=== PATIENT | female | born 1990 | race Caucasian/White ===

== ENCOUNTER 2019-09-01 19:10 | Emergency (ER) | payer SELFPAY ==
[2019-09-01 19:19] VITALS: BP 95/57; PULSE 114; RESP 18; TEMP 37.6; O2SAT 98; BMI 23.1
--- NOTE | 2019-09-01 20:39 | ED_ITS ---
Entered by Belkis Stewart, acting as scribe for Bárbara Pickering MD Sep 01, 2019 19:10 HPI - Fever General: Chief Complaint: Fever Stated Complaint: fever Time Seen by Provider: 09/01/19 20:39 Source: patient and RN notes reviewed Mode of arrival: ambulatory Limitations: no limitations History of Present Illness: HPI Narrative: 29 yo female presents to ED with complaints of a high fever and sore throat that began today. The patient said she had a bad headache and body aches this morning. She said her thermometer measured 106.2. She has had Tylenol just prior to arrival. She has had sick contact. MD elicited complaint: fever and malaise Onset (ago): hour(s) (10 - began this morning) Measured temperature: 99.7 F Context: sick contacts and other(s) with similar symptoms Exacerbating factors: swallowing Relieving factors: acetaminophen Associated symptoms: Reports chills, headache(s) and sore throat; Deny abdominal pain, back/flank pain, chest pain, diarrhea, nausea or vomiting Treatments prior to arrival fever: acetaminophen Review of Systems Const: Reports: chills Eyes: Denies: change in vision ENMT: Denies: ear pain Card: Denies: chest pain, swelling of feet/ankles, shortness of breath on exertion or shortness of breath when lying down Resp: Denies: shortness of breath or productive cough GI: Denies: abdominal pain, nausea, vomiting, diarrhea or constipation : Denies: flank pain or difficulty urinating Musc: Denies: back pain Skin/Breast: Denies: rash Neuro: Reports: headache Psych: Denies: depression Endo: Denies: excessive thirst Derek/Lymph: Denies: easy bruising PFS ED PFSH: Social History Smoking and tobacco status: current every day smoker Physical Exam Const: COMMON NORMALS: no apparent distress, oriented x3 and alert GENERAL APPEARANCE: cooperative and well developed; not in distress and not diaphoretic ORIENTATION/CONSCIOUSNESS: Yes awake, Yes oriented to person, Yes oriented to place and Yes oriented to time HENMT: COMMON NORMALS: normocephalic, head/scalp atraumatic, external ears normal, external nose normal and moist oral mucous membranes HEAD & SCALP: normocephalic and atraumatic FACE & SINUS: normal facial exam; no facial tenderness NOSE: external nose normal EXTERNAL EAR: Yes external ears normal MOUTH: oral and palatal mucosa normal, lip normal and tongue normal TEETH & GINGIVA: no abnormal tooth and associated gingiva THROAT: uvula midline and posterior oropharynx abnormal erythema; posterior oropharynx not normal Eye: COMMON NORMALS: PERRL and EOMs intact bilaterally PUPIL: Yes PERRL Neck/C-Spine: COMMON NORMALS: full ROM, supple and no JVD GENERAL: Yes normal visual inspection and Yes trachea midline CERVICAL SPINE: No cervical spine tenderness Lymph: LYMPHATIC: no lymphadenopathy noted Chest: COMMONS NORMALS: inspection of chest normal Resp: COMMON NORMALS: normal respiratory effort, no use of accessory muscles and clear to auscultation bilaterally EFFORT & INSPECTION: Yes able to speak in complete sentences and Yes symmetric chest movement AUSCULTATION: clear to auscultation bilaterally Cardio: COMMON NORMALS: no JVD, regular rate, regular rhythm, no gallops, no murmurs and peripheral pulses 2+ throughout RATE: regular rate RHYTHM: regular rhythm PERIPHERAL PULSES: pulses 2+ throughout GI: COMMON NORMALS: normal to inspection, nondistended, normoactive bowel sounds, soft to palpation and non-tender PALPATION: Yes soft Back/Pelvis: COMMON NORMALS: thoracic and lumbar spine normal to inspection and thoraco-lumbar ROM normal Extremity: COMMON NORMALS: normal to inspection, full ROM and normal capillary refill Neuro: COMMON NORMALS: oriented x3, CN's II-XII intact bilaterally, moves all extremities, no focal motor deficits and no sensory deficits noted SENSORIUM/ORIENTATION: Yes alert, Yes oriented to person, Yes oriented to place and Yes oriented to time Psych: COMMON NORMALS: mental status grossly normal, thought process normal, cooperative, affect normal, speech normal and activity/motor behavior normal SPEECH: Yes normal speech THOUGHT PROCESS: normal thought process Skin: COMMON NORMALS: no rashes or lesions noted and skin turgor normal GENERAL SKIN EXAM: no rashes or lesions noted and turgor normal Course ED course: Patient took tylenol before coming in and her temp is 99.7 here. 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 Flu and strep were both neg for her here - discussed symptomatic treatment and will keep her off work for infection control purposes until Thursday. Vital Signs: Vital signs: Vital Signs Temperature 98.4 F 09/01/19 20:47 Pulse Rate 100 09/01/19 21:23 Respiratory Rate 16 09/01/19 21:23 Blood Pressure 90/59 09/01/19 21:23 Pulse Oximetry 97 09/01/19 21:23 MDM - Fever Lab Data: Labs: Lab Results 09/01/19 09/01/19 Range/Units 20:51 20:51 Influenza Type A A g Negative (Negative) POC Influenza B Ag Negative (Negative) Group A Strep Rapi d Negative (Negative) Discharge Plan Discharge Patient Disposition: Home, Self-Care Clinical Impression: Viral infection Condition: Stable Prescriptions: No Action No Known Home Medications RF: 0 Discharge Orders: Discharge Order (Routine); Ordered 09/01/19 Ordered By: Bárbara Pickering Referrals: Jared Calvin MD [Primary Care Provider] - Patient Instructions: Viral Syndrome (ED) Activity Restrictions/Additional Instructions: Use ibuprofen and acetaminophen for fever or pain. Rest and drink plenty of fluids. No work until fever free for 24 hours. Stand Alone Forms: Work/School Release Coding Level of Care Code ED Manager Engagement for Chg Fwd Exam Problem Focused The documentation recorded by the Terry mcclure Valerie R, accurately reflects the service I personally performed and the decisions made by Raheel cornelius Kathryn L, MD Sep 01, 2019 19:10
--- NOTE | 2019-09-01 20:44 | PC.NURSE ---
Patient states she woke up today with a fever and a sore throat. Patient states she used a forehead temperature scanner at home and it read 106.2. 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
[2019-09-01 20:47] VITALS: BP 104/55; PULSE 93; RESP 16; TEMP 36.9; O2SAT 97
[2019-09-01 21:19] LABS: Rapid Strep A Test Negative (Negative)
[2019-09-01 21:23] VITALS: BP 90/59; PULSE 100; RESP 16; O2SAT 97
[2019-09-01 21:33] LABS: Influenza A by IFA Negative (Negative)
[2019-09-01 21:34] LABS: Influenza B by IFA Negative (Negative)
[2019-09-01 22:01] VITALS: BP 98/65; PULSE 88; RESP 14; O2SAT 97
== END 2019-09-01 22:04 | disposition home or self-care (01) ==
PROVIDERS: Nurse Practitioner Family; Emergency Provider Emergency Medicine; Family Provider Family Medicine; PCP Family Medicine
DX: B34.9 Viral infection, unspecified (principal); F17.200 Nicotine dependence, unspecified, uncomplicated
CPT/HCPCS: 87081; 87804; 87880; 99282

== ENCOUNTER → 2019-12-16 11:15 | Outpatient (BNVA) | payer OTHER, SELFPAY | PROVIDERS: Family Provider Family Medicine; PCP Family Medicine; Visit Provider Nurse Practitioner Family | DX: Z20.828 Contact with and (suspected) exposure to other viral communicable diseases (principal); J40 Bronchitis, not specified as acute or chronic | CPT/HCPCS: 87635 ==

== ENCOUNTER 2020-02-05 00:01 | Emergency (ER) | payer SELFPAY ==
--- NOTE | 2020-02-05 00:06 | ECG_ITS ---
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 Measurements Intervals [place] Rate: 71 P: 54 FL: 135 QRS: 88 QRSD: 96 T: 44 QT: 396 QTc: 431 Interpretive Statements SINUS RHYTHM INCOMPLETE RIGHT BUNDLE BRANCH BLOCK [90+ ms QRS DURATION, TERMINAL R IN V1/V2, 40+ ms S IN I/aVL/V4/V5/V6] Compared to ECG 02/13/2019 18:48:51 Sinus arrhythmia no longer present Electronically Signed On 02-05-2020 22:03:13 CDT by Marcelo Glynn M.D. [id number]
[2020-02-05 01:03] VITALS: BP 121/78; PULSE 92; RESP 17; TEMP 36.6; O2SAT 97; BMI 23.8
--- NOTE | 2020-02-05 01:24 | W.ED.DIZZY ---
HPI - Dizziness General: Chief Complaint: Dizziness Stated Complaint: dizzy; syncope this morning Time Seen by Provider: 02/05/20 01:19 Source: patient Mode of arrival: ambulatory Limitations: no limitations History of Present Illness: HPI Narrative: Patient comes in with a 1-1/2 2 weeks episodes of feeling lightheaded and dizzy. Patient appears well. Patient reports last week she had her. And since then she has had some increasing dizzy spells. Patient also reports some nausea. Patient appears in no pain. Patient denies any fever. MD elicited complaint: dizziness Review of Systems General: Reports: 10 or more systems reviewed and unremarkable except in HPI and below Neuro: Reports: dizziness PFS ED PFSH: Social History (Updated 12/16/19 @ 11:19 by Ira Marie LPN) Smoking and tobacco status: current every day smoker Alcohol intake: never History of recent travel: No Female Reproductive History: Date of last menstrual period: 01/31/20 Physical Exam Const: COMMON NORMALS: no acute distress and patient oriented x3 GENERAL APPEARANCE: cooperative HENMT: COMMON NORMALS: normocephalic, TM's normal bilaterally and Normal external nose present HEAD & SCALP: normal to inspection and normocephalic NOSE: Normal external nose present TYMPANIC MEMBRANE: TM's normal bilaterally MOUTH: Normal oral and palatal mucosa present THROAT: posterior oropharynx normal Eye: GENERAL EYE: appearance normal, both eyes and all related structures Neck/C-Spine: COMMON NORMALS: full ROM Lymph: LYMPHATIC: no lymphadenopathy noted Chest: COMMONS NORMALS: normal inspection of the chest Resp: COMMON NORMALS: normal respiratory effort EFFORT & INSPECTION: Yes able to speak in complete sentences Cardio: COMMON NORMALS: regular rate and regular rhythm RATE: regular rate RHYTHM: regular rhythm GI: COMMON NORMALS: non-tender : COMMON NORMALS: Yes no CVA tenderness BLADDER/KIDNEY EXAM: Yes no CVA tenderness Back/Pelvis: COMMON NORMALS: no CVA tenderness and thoracic and lumbar spine normal to inspection Extremity: COMMON NORMALS: normal to inspection Neuro: COMMON NORMALS: patient oriented x3 and moves all extremities Psych: COMMON NORMALS: mental status grossly normal and cooperative Skin: COMMON NORMALS: no rashes or lesions noted GENERAL SKIN EXAM: no rashes or lesions noted Course Vital Signs: Vital signs: Vital Signs Temperature 98 F 02/05/20 01:03 Pulse Rate 67 02/05/20 02:37 Respiratory Rate 17 02/05/20 02:37 Blood Pressure 107/66 02/05/20 02:37 Pulse Oximetry 100 02/05/20 02:37 MDM - Dizziness MDM Narrative: Medical decision making narrative: Patient comes in with episodes of dizziness for the last 1 to 2 weeks. Patient had recently finished her. And was concerned because of some spotting that she had after completing her period. Patient appears well. Blood pressure and vital signs are normal. Abdomen soft nontender. Respirations are even lungs are clear to auscultation. Differential diagnosis includes but not limited to ectopic , anemia, urinary tract infection, electrolyte disturbance, dehydration, benign positional vertigo. Laboratory values were normal. Orthostatic blood pressures were good. Believe patient probably does have some benign positional vertigo. Patient does report that she does do this often and it sounds to be common for her. Recommended trial of aeeq-aww-qzxydqk nausea medication such as Dramamine. Patient reports understanding agreed to plan. Lab Data: Labs: Lab Results 02/05/20 02/05/20 02/05/20 Range/Units 01:44 01:57 01:57 WBC 7.0 (4.0-10.0) 10^3/ uL RBC 4.82 (4.1-5.3) 10^6/u L Hgb 13.2 (11.5-15.3) g/dL Hct 41.8 (37.0-47.0) % MCV 86.7 (81-99) fL MCH 27.4 L (28.0-34.0) pg MCHC 31.6 (30.0-36.0) g/dL RDW 12.8 (12.1-15.1) % Plt Count 176 (130-400) 10^3/c mm MPV 12.1 H (7.4-10.4) fL Neut % (Auto) 49.9 % Lymph % (Auto) 42.0 % [place] % (Auto) 5.7 % Eos % (Auto) 1.7 % Baso % (Auto) 0.6 % Neut # (Auto) 3.48 (1.8-7.7) 10^3/u L Lymph # (Auto) 2.9 (0.8-4.8) 10^3/u L [place] # (Auto) 0.4 (0.2-0.9) 10^3/u L Eos # (Auto) 0.1 (0.0-0.8) 10^3/u L Baso # (Auto) 0.0 (0.0-0.1) 10^3/u L Nucleated RBC % (a uto) 0 % Nucleated RBCs # 0.0 /100WBC Sodium 142 (136-145) mmol/L Potassium 3.8 (3.5-5.1) mmol/L Chloride 104 (98-107) mmol/L Carbon Dioxide 28 (22-29) mmol/L Anion Gap 13.8 (5-19) BUN 10 (6-20) mg/dL Creatinine 0.8 (0.5-0.9) mg/dL GFR Calculation 84.8 L (90-130) mL/min Glucose 91 (65-115) mg/dL Calculated Osmolal ity 290 (285-295) mOsm/k g Calcium 8.9 (8.5-10.5) mg/dL HCG, Qual Negative (Negative) EKG Data^: EKG 1: Attestation: I personally reviewed and interpreted this EKG as follows: (0123, sinus rhythm regular rate 71 bpm, no ectopy, no ST elevation. Incomplete right bundle branch block. No change from 02/13/2019.) Discharge Plan Discharge Patient Disposition: Home, Self-Care Clinical Impression: Benign paroxysmal positional vertigo Qualifiers: Laterality: unspecified laterality Qualified Code(s): H81.10 - Benign paroxysmal vertigo, unspecified ear Condition: Stable Prescriptions: No Action azithromycin 250 mg tablet See Rx Instructions PO .COMPLEX Qty: 6 RF: 0 Discharge Orders: Discharge Order (Routine); Ordered 02/05/20 Ordered By: Rob Kumar Referrals: Jared Calvin MD [Primary Care Provider] - Patient Instructions: Benign Paroxysmal Positional Vertigo (ED) Activity Restrictions/Additional Instructions: Drink plenty of fluids. Healthy diet and exercise. Use dvoo-fwk-[id number] motion sickness medicine such as Dramamine as needed for nausea and dizziness. Change positions slowly. Follow-up with primary care for further treatment. Return to the ER for new concerns. Stand Alone Forms: Work/School Release Coding Level of Care Code ED Correction Warden for Chg Fwd Exam Comprehensive
[2020-02-05 02:03] VITALS: BP 108/66; BP 117/73; BP 97/60; PULSE 70; PULSE 74
[2020-02-05] MEDS: sodium chloride 0.9% 1,000 ML 999 ML IV (02:07)
[2020-02-05 02:31] LABS: HCG Qualitative Urine. Negative (Negative)
[2020-02-05 02:31] LABS: Basophils % 0.6 %; Eosinophils # 0.1 10^3/uL (0.0-0.8); Eosinophils % 1.7 %; Hematocrit 41.8 % (37.0-47.0); Hemoglobin 13.2 g/dL (11.5-15.3); Lymphocytes # 2.9 10^3/uL (0.8-4.8); Mean Corpuscular HGB Conc 31.6 g/dL (30.0-36.0); Mean Corpuscular Hemoglobin 27.4 pg (28.0-34.0); Mean Corpuscular Volume 86.7 fL (81-99); Mean Platelet Volume 12.1 fL (7.4-10.4); Monocytes # 0.4 10^3/uL (0.2-0.9); Monocytes % 5.7 %; Neutrophils # 3.48 10^3/uL (1.8-7.7); Neutrophils % 49.9 %; Nucleated Red Blood Cells % 0 %; Platelet Count 176 10^3/cmm (130-400); Red Blood Count 4.82 10^6/uL (4.1-5.3); Red Cell Distribution Width 12.8 % (12.1-15.1)
[2020-02-05 02:37] VITALS: BP 107/66; PULSE 67; RESP 17; O2SAT 100
[2020-02-05 02:38] LABS: Anion Gap 13.8 (5-19); Blood Urea Nitrogen 10 mg/dL (6-20); Calcium 8.9 mg/dL (8.5-10.5); Carbon Dioxide 28 mmol/L (22-29); Chloride 104 mmol/L (98-107); Glomerular Filtration Rate 84.8 mL/min (90-130); Glucose 91 mg/dL (65-115); Osmolality Calculated 290 mOsm/kg (285-295); Potassium 3.8 mmol/L (3.5-5.1); Sodium 142 mmol/L (136-145)
[2020-02-05 02:54] LABS: Urine Appearance SL Hazy (CLEAR); Urine Color Yellow (Yellow)
[2020-02-05 02:55] LABS: Add Urine Microscopic? YES; Bilirubin Urine Neg (NEGATIVE); Blood Urine Neg (Negative); Glucose Urine UA Norm (Normal); Ketones Urine Negative (Negative); Leukocyte Esterase Urine Negative (Negative); Nitrate Urine Negative (Negative); Protein Urine 1+ (Negative); Urobilinogen Urine Norm (Negative); pH Urine 7 (5-7)
[2020-02-05 03:01] VITALS: BP 92/52; PULSE 66; RESP 14; O2SAT 100
[2020-02-05 03:04] LABS: RBC Urine 0-4 /hpf (0-2)
[2020-02-05 03:05] LABS: Add Urine Culture? No; Bacteria Urine 1+; Mucus Urine 1+; Squamous Epithelial Cell Urine 15-25 (0-5)
== END 2020-02-05 03:07 | disposition home or self-care (01) ==
PROVIDERS: Emergency Medicine; Emergency Provider Nurse Practitioner Family; PCP Family Medicine
DX: H81.10 Benign paroxysmal vertigo, unspecified ear (principal); F17.210 Nicotine dependence, cigarettes, uncomplicated
CPT/HCPCS: 12345; 80048; 81001; 81003; 81025; 85025; 93005; 96360; 99283; J7030

== ENCOUNTER → 2020-05-09 13:18 | Outpatient (BNVA) | payer OTHER, SELFPAY | PROVIDERS: PCP Family Medicine; Visit Provider Nurse Practitioner Family | DX: Z20.828 Contact with and (suspected) exposure to other viral communicable diseases (principal) | CPT/HCPCS: 87635 ==

== ENCOUNTER → 2020-10-22 11:57 | Outpatient (BNVA) | payer SELFPAY | PROVIDERS: PCP Family Medicine; Visit Provider Nurse Practitioner | DX: N39.0 Urinary tract infection, site not specified (principal); A49.9 Bacterial infection, unspecified | CPT/HCPCS: 81000; 87086 ==

== ENCOUNTER → 2021-02-08 13:51 | Outpatient (BNVA) | payer OTHER, SELFPAY | PROVIDERS: PCP Family Medicine; Visit Provider Nurse Practitioner Family | DX: Z20.822 Contact with and (suspected) exposure to COVID-19 (principal); J06.9 Acute upper respiratory infection, unspecified | CPT/HCPCS: 87635 ==

== ENCOUNTER → 2021-06-12 18:02 | Outpatient (BNVA) | payer OTHER, SELFPAY | PROVIDERS: PCP Family Medicine; Visit Provider Nurse Practitioner Family | DX: Z20.822 Contact with and (suspected) exposure to COVID-19 (principal); R68.89 Other general symptoms and signs | CPT/HCPCS: 87400; 87635 ==

== ENCOUNTER → 2021-06-17 09:58 | Outpatient (BNVA) | payer OTHER, SELFPAY | PROVIDERS: PCP Family Medicine; Visit Provider Nurse Practitioner Family | DX: Z20.822 Contact with and (suspected) exposure to COVID-19 (principal) | CPT/HCPCS: 87635 ==

== ENCOUNTER → 2021-06-24 16:31 | Outpatient (BNVA) | payer SELFPAY | PROVIDERS: PCP Family Medicine; Visit Provider Nurse Practitioner | DX: J02.9 Acute pharyngitis, unspecified (principal) | CPT/HCPCS: 87071; 87880 ==

== ENCOUNTER 2021-07-27 20:41 | Emergency (ER) | payer SELFPAY ==
[2021-07-27 20:45] VITALS: BP 121/65; PULSE 100; RESP 16; TEMP 37.1; O2SAT 97; BMI 23.2
[2021-07-27 21:23] VITALS: O2SAT 98
--- NOTE | 2021-07-27 21:23 | ED_ITS ---
HPI - URI/Sore Throat General: Chief Complaint: COVID symptoms Stated Complaint: body aches,fever, headache Time Seen by Provider: 07/27/21 21:10 Source: patient Mode of arrival: ambulatory Limitations: no limitations History of Present Illness: HPI Narrative: Patient is a 30-year-old female presents to ED today for complaint of fevers of up to 102, body aches, chills, scratchy throat, productive cough, and a headache. Symptoms of been present since yesterday. Patient states her son is sick with identical symptoms. Patient states herself and her son both tested positive for COVID last month. She is not having any abdominal pain, vomiting, diarrhea. No rash. No neck pain/stiffness. Onset (ago): day(s) Description of mucous: clear Able to tolerate fluids by mouth: Yes Context: sick contacts (son) Associated symptoms: Reports chills, fever(s) and headache(s); Deny abdominal pain, chest pain, diarrhea, ear or mastoid pain, nasal congestion, nausea or vomiting Treatments prior to arrival: none Review of Systems Const: Reports: fever(s), chills and body aches Eyes: Denies: change in vision, blurry vision, eye discomfort or eye discharge ENMT: Denies: throat pain, odynophagia, ear or mastoid pain, nasal discharge or nasal congestion Card: Denies: chest pain Resp: Reports: productive cough and chest congestion; Denies: dyspnea, wheezing or hemoptysis GI: Denies: abdominal pain, nausea, vomiting or diarrhea Musc: Denies: neck pain, back pain, extremity pain or joint pain Skin/Breast: Denies: rash Neuro: Reports: headache(s); Denies: numbness in extremities, weakness in extremities or sensory changes PFS ED PFSH: Social History Alcohol intake: never History of recent travel: No Female Reproductive History: Date of last menstrual period: 01/31/20 Physical Exam Const: COMMON NORMALS: no acute distress, average body habitus, patient oriented x3, no limitations, healthy appearing, alert and well nourished GENERAL APPEARANCE: cooperative HENMT: COMMON NORMALS: normocephalic and atraumatic HEAD & SCALP: normal to inspection, normocephalic and atraumatic FACE & SINUS: normal facial exam THROAT: posterior oropharynx normal, tonsils normal and uvula midline Neck/C-Spine: COMMON NORMALS: full ROM, no lymphadenopathy, supple and no meningeal signs Chest: COMMONS NORMALS: normal inspection of the chest Resp: COMMON NORMALS: normal respiratory effort and clear to auscultation bilaterally AUSCULTATION: clear to auscultation bilaterally Cardio: COMMON NORMALS: regular rate and regular rhythm RATE: regular rate RHYTHM: regular rhythm GI: COMMON NORMALS: Normal to inspection, nondistended, normoactive bowel sounds present, Soft to palpation, non-tender, No hepatosplenomegaly present and no masses PALPATION: Yes Soft to palpation and Yes No hepatosplenomegaly present : COMMON NORMALS: Yes no CVA tenderness BLADDER/KIDNEY EXAM: Yes no CVA t enderness Back/Pelvis: COMMON NORMALS: no CVA tenderness and thoracic and lumbar spine normal to inspection Extremity: COMMON NORMALS: normal to inspection Neuro: COMMON NORMALS: patient oriented x3 SENSORIUM/ORIENTATION: Yes alert MENINGEAL SIGNS: Yes no meningeal signs Skin: COMMON NORMALS: no rashes or lesions noted GENERAL SKIN EXAM: no rashes or lesions noted Course Vital Signs: Vital signs: Vital Signs Temperature 98.6 F 07/27/21 22:47 Pulse Rate 90 07/27/21 22:47 Respiratory Rate 16 07/27/21 22:47 Blood Pressure 121/65 07/27/21 20:45 Pulse Oximetry 97 07/27/21 22:47 MDM - URI/Sore Throat MDM Narrative: Medical decision making narrative: Patient clinically appears well. Her vital signs are normal. Influenza is negative. I would have a low suspicion for COVID reinfection as she had a positive test 1 month ago. Recommend conservative treatment at home. Return to ED precautions given. I did order Coronavirus PCR on her son which we should have results of that shortl y. They present with almost identical symptoms. Explained to mother that if he tests positive for something then most likely she has the same thing. Lab Data: Attestation: I reviewed the patient's lab results. Labs: Lab Results 07/27/21 21:30 Influenza Type A A g Negative (Negative) Influenza Type B A g Negative (Negative) Discharge Plan Discharge Patient Disposition: Home Clinical Impression: Viral upper respiratory illness Condition: Stable Prescriptions: No Action amoxicillin-pot clavulanate [Augmentin] 875-125 mg tablet 1 tab PO Q12H 7 Days Qty: 14 RF: 0 Discharge Orders: Discharge ED (Routine); Ordered 07/27/21 Ordered By: Sylvia Funez Referrals: Jared Calvin MD [Primary Care Provider] - Patient Instructions: Upper Respiratory Infection (ED) Stand Alone Forms: Work/School Release Coding Level of Care Code ED Press Writer for [facility] Fwd Exam Comprehensive
[2021-07-27 22:22] LABS: Influenza A by IFA Negative (Negative); Influenza B by IFA Negative (Negative)
[2021-07-27 22:47] VITALS: PULSE 90; RESP 16; TEMP 37; O2SAT 97
== END 2021-07-27 22:48 | disposition home or self-care (01) ==
PROVIDERS: Emergency Provider Physician Assistant; PCP Family Medicine
DX: J06.9 Acute upper respiratory infection, unspecified (principal); Z86.16 Personal history of COVID-19; Z20.822 Contact with and (suspected) exposure to COVID-19
CPT/HCPCS: 87804; 99282

== ENCOUNTER → 2021-07-29 13:27 | Outpatient (BNVA) | payer SELFPAY | PROVIDERS: PCP Family Medicine; Visit Provider Nurse Practitioner Family | DX: Z20.822 Contact with and (suspected) exposure to COVID-19 (principal) | CPT/HCPCS: 87635 ==

== ENCOUNTER → 2021-11-08 13:37 | Outpatient (BNVA) | payer SELFPAY | PROVIDERS: PCP Family Medicine; Visit Provider Family Medicine Adult Medicine | DX: R11.2 Nausea with vomiting, unspecified (principal) | CPT/HCPCS: 87400 ==

== ENCOUNTER 2022-01-25 08:31 | Emergency (ER) | payer MEDICAID, SELFPAY ==
--- NOTE | 2022-01-25 08:35 | XRR_ITS ---
PROCEDURE INFORMATION: Exam: XR Left Hand Exam date and time: 01/25/2022 8:57 AM Age: 31 years old Clinical indication: Injury or trauma; Other: Object fell on hand/wrist; Crushing; Hand and wrist; Left; Additional info: Hand injury TECHNIQUE: Imaging protocol: Radiologic exam of the Left hand. Views: 3 or more views. COMPARISON: No relevant prior studies available. FINDINGS: Bones/joints: Negative for acute bony abnormality Soft tissues: Normal. XR/XR hand LT min 3V* [id number] IMPRESSION: No acute findings.
[2022-01-25 08:48] VITALS: BP 112/74; PULSE 64; RESP 14; TEMP 36.6; O2SAT 99; BMI 23.3
--- NOTE | 2022-01-25 09:11 | W.ED.EXTPRO ---
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 She was helping load a toolbox into the vehicle the other end was dropped unexpectedly and it strained her wrist. She is not previously had injury to that wrist or thumb. There is no laceration no bruising she is tender to touch and with motion. MD Complaint: extremity pain and joint pain Onset (ago): minute(s) Pain Consistency: constant Location: left and upper extremity Quality: aching Radiation: none Relieving factors: nothing Exacerbating factors: palpation Associated symptoms: Deny fever(s) Review of Systems Const: Denies: fever(s) or chills Musc: Reports: extremity pain and joint pain; Denies: extremity swelling or joint swelling PFS ED PFSH: Social History (Updated 07/29/21 @ 10:32 by Alona Juan NP) Smoking and tobacco status: current every day smoker cigarettes Alcohol intake: never History of recent travel: No Female Reproductive History: Date of last menstrual period: 01/31/20 Physical Exam Const: COMMON NORMALS: no acute distress GENERAL APPEARANCE: cooperative and comfortable ORIENTATION/CONSCIOUSNESS: Yes awake, Yes oriented to person, Yes oriented to place and Yes oriented to time HENMT: COMMON NORMALS: normocephalic, atraumatic and hearing grossly normal bilaterally HEAD & SCALP: normocephalic and atraumatic Extremity: COMMON NORMALS: normal to inspection, capillary refill normal, no clubbing, cyanosis or edema, no calf tenderness and no pedal edema OTHER: No ligamentous instability or laxity no swelling no erythema no ecchymosis no lacerations no laxity no ulnar collateral ligament. No pain at the anatomical snuffbox Neuro: SENSORIUM/ORIENTATION: Yes oriented to person, Yes oriented to place and Yes oriented to time Skin: COMMON NORMALS: no rashes or lesions noted GENERAL SKIN EXAM: no rashes or lesions noted Course Vital Signs: Vital signs: Vital Signs Temperature 98 F 01/25/22 08:48 Pulse Rate 64 01/25/22 08:48 Respiratory Rate 14 01/25/22 08:48 Blood Pressure 112/74 01/25/22 08:48 Pulse Oximetry 99 01/25/22 08:48 MDM - Extremity (Nontraumatic) Medical Decision Making Ice ibuprofen as needed May return to use as comfortable Medical Records I reviewed the patient's medical records. Lab Data I reviewed the patient's lab results. Discharge Plan Discharge Patient Disposition: Home Clinical Impression: Sprain of left wrist Condition: Stable Prescriptions: New diclofenac sodium 75 mg tablet,delayed release (DR/EC) 75 mg PO Q12H PRN (Reason: pain) Qty: 20 0RF No Action melatonin 5 mg capsule 10 mg PO ONCE PRN0RF sertraline [Zoloft] 100 mg tablet 100 mg PO DAILY 0RF Discharge Orders: Discharge ED (Routine); Ordered 01/25/22 Ordered By: Francisco Arreguin Referrals: Jared Calvin MD [Primary Care Provider] - Discharge Diet: Usual diet Discharge Activity: Increase activity as tolerated Patient Instructions: Opioid Safety Activity Restrictions/Additional Instructions: Ice for wrist as needed. Use diclofenac as needed as well. Do not take ibuprofen or Aleve when taking diclofenac. Coding Level of Care Code ED Compliance Specialist for [employer] Fwd Exam Expanded Problem Focused
--- NOTE | 2022-01-25 09:14 | XRR_ITS ---
PROCEDURE INFORMATION: Exam: XR Left Wrist Exam date and time: 01/25/2022 9:16 AM Age: 31 years old Clinical indication: Injury or trauma; Other: Object fell on wrist/hand; Crushing; Hand and wrist; Left; Additional info: Pain TECHNIQUE: Imaging protocol: Radiologic exam of the Left wrist. Views: 3 or more views. COMPARISON: CR (UP EXM, ) 01/25/2022 8:57 AM FINDINGS: Bones/joints: Negative for acute fracture or focal bony abnormality. Soft tissues: Normal. XR/XR wrist LT min 3V* [id number] IMPRESSION: No acute findings.
== END 2022-01-25 09:27 | disposition home or self-care (01) ==
PROVIDERS: Emergency Provider Family Medicine; PCP Family Medicine
DX: S63.502A Unspecified sprain of left wrist, initial encounter (principal); F17.210 Nicotine dependence, cigarettes, uncomplicated; X50.0XXA Overexertion from strenuous movement or load, initial encounter
CPT/HCPCS: 73110; 73130; 99283

== ENCOUNTER → 2022-03-05 12:31 | Outpatient (BNVA) | payer MEDICAID, SELFPAY | PROVIDERS: PCP Family Medicine; Visit Provider Emergency Medicine | DX: R39.9 Unspecified symptoms and signs involving the genitourinary system (principal); K57.92 Diverticulitis of intestine, part unspecified, without perforation or abscess without bleeding | CPT/HCPCS: 81000 ==

== ENCOUNTER → 2022-06-03 11:27 | Outpatient (BNVA) | payer MEDICAID, SELFPAY | PROVIDERS: PCP Family Medicine; Visit Provider Nurse Practitioner Family | DX: R11.2 Nausea with vomiting, unspecified (principal) | CPT/HCPCS: 87400 ==

== ENCOUNTER 2022-07-01 13:31 | Emergency (ER) | payer MEDICAID, SELFPAY ==
[2022-07-01 13:38] VITALS: BP 124/84; PULSE 98; RESP 16; TEMP 36.8; O2SAT 100; BMI 23.3
[2022-07-01 14:03] LABS: Add Urine Microscopic? NO; Charge for UA Resulting for Rev
[2022-07-01 14:13] LABS: HCG Qualitative Urine. Negative (Negative)
[2022-07-01 14:13] LABS: Bilirubin Urine Neg (Negative); Blood Urine Neg (Negative); Glucose Urine UA Norm (Normal); Ketones Urine Negative (Negative); Leukocyte Esterase Urine Negative (Negative); Nitrate Urine Negative (Negative); Protein Urine Neg (Negative); Specific Gravity, Urine 1.015 (1.005-1.030); Urine Appearance Clear (CLEAR); Urine Color Yellow (Yellow); Urobilinogen Urine Norm (Negative); pH Urine 5 (5-7)
--- NOTE | 2022-07-01 14:31 | US_ITS ---
WS: [id number] ULTRASOUND PELVIS TECHNIQUE: Transabdominal and transvaginal. ULTRASOUND PELVIS TECHNIQUE: Transabdominal and transvaginal. CLINICAL INFORMATION: pelvic pain LMP: : No. COMPARISON: None. FINDINGS: Uterus Orientation: Anteverted. Size: 8.5 cm x 5.6 cm x 5.0 cm. Masses: None. Cervix: Incidental nabothian cysts in cervix. Endometrium: Normal. Endometrium thickness: 6 mm Adnexa: RIGHT ovarian hemorrhagic cyst measuring 2.6 x 2.4 x 2.1 cm with internal septations and debr is. Multifollicular LEFT ovary. Possible corpus luteum cyst LEFT ovary. Right ovary size: 3.8 cm x 4.2 cm x 3.5 cm. Right ovary volume: 29.8 ccm3. Left ovary size: 4.4 cm x 2.2 cm x 4.1 cm. Left ovary volume: 20.8 ccm3 Free fluid: Present Other findings: None. US/US pelvic with transvaginal IMPRESSION: 1. RIGHT ovarian hemorrhagic cyst measuring 2.6 x 2.4 x 2.1 cm with internal s eptations and debris. 2. Small amount of free fluid in the cul-de-sac. 3. Endometrium measures 6.4 mm. 4. Multifollicular LEFT ovary.
--- NOTE | 2022-07-01 14:48 | W.ED.FEMALGU ---
Documented by User: DEMETRIO Kraft 07/01/22 18:31 HPI - Female Genitourinary General: Chief complaint: Urogenital-Female Stated complaint: abd/urinary pain Time Seen by Provider: 07/01/22 13:49 History of Present Illness: Patient is in today for pelvic pain. She reports that approximately mid April she peed something rubbery out. She is concerned because she has had a tubal ligation back before they burnt or clipped the tubes. She reports that shortly after her pain the rubber material out she had a period that lasted approximately a month. She reports that approximately a week ago she had a period for 1 day which is very atypical for her. She reports that since Thursday she has had pelvic pain, nausea, breast tenderness, fever. She is very concerned that she is . She does report clear whitish vaginal discharge. She denies any new sexual partners. Associated symptoms: Reports abdominal pain, nausea and vaginal discharge Review of Systems Const: Reports: fever(s), chills and body aches Card: Denies: chest pain or palpitations Resp: Denies: dyspnea, productive cough or non-productive cough GI: Reports: abdominal pain and nausea; Denies: vomiting : Reports: vaginal discharge, change in menstrual flow and pelvic pain; Denies: difficulty voiding, dysuria or urinary frequency PFSH ED PFSH: Social History Smoking and tobacco status: current every day smoker cigarettes Alcohol intake: never History of recent travel: No Physical Exam Const: COMMON NORMALS: patient oriented x3 and alert OTHER: Patient is sitting in the chair holding her abdomen. Neck/C-Spine: COMMON NORMALS: no JVD Resp: COMMON NORMALS: normal respiratory effort, No use of accessory muscles and clear to auscultation bilaterally AUSCULTATION: clear to auscultation bilaterally Cardio: COMMON NORMALS: no JVD, regular rate, regular rhythm, S1 normal heart sound present, S2 normal heart sound present and No murmurs present (Cardio) RATE: regular rate RHYTHM: regular rhythm HEART SOUNDS: S1 normal heart sound present and S2 normal heart sound present GI: COMMON NORMALS: Normal to inspection, nondistended, normoactive bowel sounds present and Soft to palpation PALPATION: Yes Soft to palpation and Yes Tenderness to palpation present (GI) Details: LLQ and RLQ Neuro: COMMON NORMALS: patient oriented x3 SENSORIUM/ORIENTATION: Yes alert Course Vital Signs: Vital signs: Vital Signs Temperature 98.2 F 07/01/22 13:38 Pulse Rate 81 07/01/22 16:43 Respiratory Rate 14 07/01/22 16:43 Blood Pressure 99/61 07/01/22 16:43 Pulse Oximetry 97 07/01/22 16:43 Oxygen Delivery Me thod 07/01/22 16:43 MDM - Female Medical Decision Making Consider pelvic pain, ovarian cyst, ovarian torsion, PID. hCG is negative. Patient was concerned about ectopic despite a previous tubal ligation. Ultrasound shows right side ovarian hemorrhagic cyst small amount of free fluid in the cul-de-sac. Will treat patient with NSAIDs. Discharge her home to follow-up with [facility] for management of ovarian cyst. Return to the ER as needed for new or worsening symptoms. Lab Data 07/01/22 15:52 07/01/22 15:52 Radiology Impressions Pelvic/Transvag US 07/01/22 14:31 IMPRESSION: 1. RIGHT ovarian hemorrhagic cyst measuring 2.6 x 2.4 x 2.1 cm with internal septations and debris. 2. Small amount of free fluid in the cul-de-sac. 3. Endometrium measures 6.4 mm. 4. Multifollicular LEFT ovary. Laboratory Results WBC 5.3 10^3/uL (4.0-10.0) 07/01/22 15:52 RBC 4.72 10^6/uL (4.1-5.3) 07/01/22 15:52 Hgb 13.3 g/dL (11.5-15.3) 07/01/22 15:52 Hct 40.8 % (37.0-47.0) 07/01/22 15:52 MCV 86.4 fl (81-99) 07/01/22 15:52 MCH 28.2 pg (28.0-34.0) 07/01/22 15:52 MCHC 32.6 g/dL (30.0-36.0) 07/01/22 15:52 RDW 12.7 % (12.1-15.1) 07/01/22 15:52 Plt Count 177 10^3/cmm (130-400) 07/01/22 15:52 MPV 12.0 fL (7.4-10.4) H 07/01/22 15:52 Neut % (Auto) 58.7 % 07/01/22 15:52 Lymph % (Auto) 31.1 % 07/01/22 15:52 [place] % (Auto) 8.1 % 07/01/22 15:52 Eos % (Auto) 1.5 % 07/01/22 15:52 Baso % (Auto) 0.4 % 07/01/22 15:52 Neut # (Auto) 3.13 10^3/uL (1.8-7.7) 07/01/22 15:52 Lymph # (Auto) 1.7 10^3/uL (0.8-4.8) 07/01/22 15:52 [place] # (Auto) 0.4 10^3/uL (0.2-0.9) 07/01/22 15:52 Eos # (Auto) 0.1 10^3/uL (0.0-0.8) 07/01/22 15:52 Baso # (Auto) 0.0 10^3/uL (0.0-0.1) 07/01/22 15:52 Nucleated RBC % (auto) 0 % 07/01/22 15:52 Nucleated RBCs # 0.0 /100WBC 07/01/22 15:52 Sodium 141 mmol/L (136-145) 07/01/22 15:52 Potassium 4.1 mmol/L (3.5-5.1) 07/01/22 15:52 Chloride 105 mmol/L (98-107) 07/01/22 15:52 Carbon Dioxide 24 mmol/L (22-29) 07/01/22 15:52 Anion Gap 16.1 (5-19) 07/01/22 15:52 BUN 11 mg/dL (6-20) 07/01/22 15:52 Creatinine 0.8 mg/dL (0.5-0.9) 07/01/22 15:52 GFR Calculation 83.7 mL/min (90-130) L 07/01/22 15:52 Glucose 76 mg/dL (65-115) 07/01/22 15:52 Calculated Osmolality 290 mOsm/kg (285-295) 07/01/22 15:52 Calcium 9.3 mg/dL (8.5-10.5) 07/01/22 15:52 Total Bilirubin 0.2 mg/dL (0.15-1.2) 07/01/22 15:52 AST 17 U/L (0-32) 07/01/22 15:52 ALT 16 U/L (0-33) 07/01/22 15:52 Alkaline Phosphatase 54 U/L (35-105) 07/01/22 15:52 Total Protein 7.2 g/dL (6.6-8.7) 07/01/22 15:52 Albumin 4.6 g/dL (3.5-5.2) 07/01/22 15:52 Globulin 2.6 g/dL (1.3-4.6) 07/01/22 15:52 HCG, Qual Negative (Negative) 07/01/22 13:51 Ser , Semi-Qnt 1.00 mIU/mL 07/01/22 15:52 Urine Color Yellow (Yellow) 07/01/22 13:50 Urine Appearance Clear (CLEAR) 07/01/22 13:50 Urine pH 5 (5-7) 07/01/22 13:50 Ur Specific [place] 1.015 (1.005-1.030) 07/01/22 13:50 Urine Protein Neg (Negative) 07/01/22 13:50 Urine Glucose (UA) Norm (Normal) 07/01/22 13:50 Urine Ketones Negative (Negative) 07/01/22 13:50 Urine Blood Neg (Negative) 07/01/22 13:50 Urine Nitrate Negative (Negative) 07/01/22 13:50 Urine Bilirubin Neg (Negative) 07/01/22 13:50 Urine Urobilinogen Norm mg/dL (Negative) 07/01/22 13:50 Ur Leukocyte Esterase Negative (Negative) 07/01/22 13:50 Discharge Plan Discharge Patient Disposition: Home Clinical Impression: Ovarian cyst Qualifiers: Laterality: right Qualified Code(s): N83.201 - Unspecified ovarian cyst, right side Condition: Stable Prescriptions: No Action melatonin 5 mg capsule 10 mg PO ONCE PRN sertraline [Zoloft] 100 mg tablet 100 mg PO DAILY gabapentin 300 mg capsule 300 mg PO DAILY All Day Allergy (cetirizine) 10 mg capsule 10 mg PO DAILY PRN (Reason: allergy symptoms) Qty: 30 0RF Discharge Orders: Discharge ED (Routine); Ordered 07/01/22 Ordered By: Oralia Melendez Referrals: Jared Calvin MD [Primary Care Provider] - Discharge Diet: Usual diet Discharge Activity: Increase activity as tolerated Patient Instructions: Ovarian Cyst (ED) Activity Restrictions/Additional Instructions: Follow-up with [facility]. Alternate Tylenol Motrin as needed for pain and discomfort. You may use warm compresses to the abdomen. Make sure that you are staying well-hydrated. Return to the ER as needed for new or worsening symptoms. Coding Level of Care Code ED Stripper And Taper for Chg Fwd Exam Detailed Documented by User: Francisco Arreguin DO 07/02/22 07:11 HPI - Female Genitourinary General: Chief complaint: Urogenital-Female Stated complaint: abd/urinary pain Time Seen by Provider: 07/01/22 13:49 PFSH ED PFSH: Social History Smoking and tobacco status: current every day smoker cigarettes Alcohol intake: never History of recent travel: No Course Vital Signs: Vital signs: Vital Signs Temperature 98.2 F 07/01/22 13:38 Pulse Rate 81 07/01/22 16:43 Respiratory Rate 14 07/01/22 16:43 Blood Pressure 99/61 07/01/22 16:43 Pulse Oximetry 97 07/01/22 16:43 Oxygen Delivery Me thod 07/01/22 16:43 MDM - Female Medical Decision Making Consider pelvic pain, ovarian cyst, ovarian torsion, PID. hCG is negative. Patient was concerned about ectopic despite a previous tubal ligation. Ultrasound shows right side ovarian hemorrhagic cyst small amount of free fluid in the cul-de-sac. Will treat patient with NSAIDs. Discharge her home to follow-up with [facility] for management of ovarian cyst. Return to the ER as needed for new or worsening symptoms. Chart reviewed and patient discussed with midlevel. Agree with assessment and plan. Medical Records I reviewed the patient's medical records. Lab Data I reviewed the patient's lab results. 07/01/22 15:52 07/01/22 15:52 Radiology Impressions Pelvic/Transvag US 07/01/22 14:31
[2022-07-01] MEDS: ondansetron 4 MG Tablet PO (15:28)
[2022-07-01 16:17] LABS: Basophils % 0.4 %; Eosinophils # 0.1 10^3/uL (0.0-0.8); Eosinophils % 1.5 %; Hematocrit 40.8 % (37.0-47.0); Hemoglobin 13.3 g/dL (11.5-15.3); Lymphocytes # 1.7 10^3/uL (0.8-4.8); Lymphocytes % 31.1 %; Mean Corpuscular HGB Conc 32.6 g/dL (30.0-36.0); Mean Corpuscular Hemoglobin 28.2 pg (28.0-34.0); Mean Corpuscular Volume 86.4 fl (81-99); Monocytes # 0.4 10^3/uL (0.2-0.9); Monocytes % 8.1 %; Neutrophils # 3.13 10^3/uL (1.8-7.7); Neutrophils % 58.7 %; Nucleated Red Blood Cells % 0 %; Platelet Count 177 10^3/cmm (130-400); Red Blood Count 4.72 10^6/uL (4.1-5.3); Red Cell Distribution Width 12.7 % (12.1-15.1); White Blood Count 5.3 10^3/uL (4.0-10.0)
[2022-07-01 16:43] VITALS: BP 99/61; PULSE 81; RESP 14; O2SAT 97
[2022-07-01 17:02] LABS: Alanine Aminotransferase 16 U/L (0-33); Albumin Level 4.6 g/dL (3.5-5.2); Alkaline Phosphatase 54 U/L (35-105); Anion Gap 16.1 (5-19); Aspartate Amino Transferase 17 U/L (0-32); Blood Urea Nitrogen 11 mg/dL (6-20); Calcium 9.3 mg/dL (8.5-10.5); Carbon Dioxide 24 mmol/L (22-29); Chloride 105 mmol/L (98-107); Globulin 2.6 g/dL (1.3-4.6); Glomerular Filtration Rate 83.7 mL/min (90-130); Glucose 76 mg/dL (65-115); Osmolality Calculated 290 mOsm/kg (285-295); Potassium 4.1 mmol/L (3.5-5.1); Sodium 141 mmol/L (136-145); Total Bilirubin 0.2 mg/dL (0.15-1.2); Total Protein 7.2 g/dL (6.6-8.7)
[2022-07-01] MEDS: ketorolac 60 mg/2 mL INJ IM (17:05)
--- NOTE | 2022-07-02 14:04 | DCPLANNER ---
Addendum entered by Adina Willis 07/10/22 11:13: patient did not attend appointment Addendum entered by Adina Willis 07/04/22 13:47: Patient has a follow up appointment scheduled for Friday, July 08, 2022 at 8:00 with Chad at [facility]. Clinic will call patient with appointment information. Original Note: medical services manager had message to schedule a follow up appointment for patient with [facility]. medical services manager sent patients information to the front office staff at [facility]. Patients information will be printed and reviewed. Clinic will call patient with appointment information.
== END 2022-07-01 17:10 | disposition home or self-care (01) ==
PROVIDERS: Emergency Medicine; Emergency Provider Nurse Practitioner Family; PCP Family Medicine
DX: N83.201 Unspecified ovarian cyst, right side (principal); F17.210 Nicotine dependence, cigarettes, uncomplicated
CPT/HCPCS: 36415; 76830; 76856; 80053; 81003; 81025; 84702; 85025; 96372; 99284; J1885; Q0162

== ENCOUNTER → 2023-01-07 11:36 | Outpatient (BNVA) | payer MEDICAID, SELFPAY | PROVIDERS: PCP Family Medicine; Visit Provider Nurse Practitioner Family | DX: R82.90 Unspecified abnormal findings in urine (principal); B37.31 Acute candidiasis of vulva and vagina | CPT/HCPCS: 81000 ==

== ENCOUNTER → 2023-03-13 17:19 | Outpatient (BNVA) | payer MEDICAID, SELFPAY | PROVIDERS: PCP Family Medicine; Visit Provider Nurse Practitioner | DX: Z20.822 Contact with and (suspected) exposure to COVID-19 (principal) | CPT/HCPCS: 87426 ==

== ENCOUNTER → 2023-04-21 14:19 | Outpatient (BNVA) | payer MEDICAID, SELFPAY | PROVIDERS: PCP Family Medicine; Visit Provider Nurse Practitioner Family | DX: J02.9 Acute pharyngitis, unspecified (principal); Z11.52 Encounter for screening for COVID-19 | CPT/HCPCS: 87426; 87880 ==

== ENCOUNTER → 2023-12-25 15:41 | Outpatient (BNVA) | payer MEDICAID, SELFPAY | PROVIDERS: PCP Family Medicine; Visit Provider Registered Nurse Neonatal Intensive Care | DX: R39.9 Unspecified symptoms and signs involving the genitourinary system (principal); Z20.2 Contact with and (suspected) exposure to infections with a predominantly sexual mode of transmission | CPT/HCPCS: 81000 ==

== ENCOUNTER → 2024-01-08 14:39 | Outpatient (BNVA) | payer MEDICAID, SELFPAY | PROVIDERS: PCP Family Medicine | DX: Z20.2 Contact with and (suspected) exposure to infections with a predominantly sexual mode of transmission (principal) | CPT/HCPCS: 87491; 87591 ==

== ENCOUNTER → 2024-02-17 14:00 | Outpatient (BNVA) | payer MEDICAID, SELFPAY | PROVIDERS: PCP Family Medicine; Visit Provider Nurse Practitioner | DX: J02.9 Acute pharyngitis, unspecified (principal) | CPT/HCPCS: 87880 ==

== ENCOUNTER → 2024-03-28 16:33 | Outpatient (BNVA) | payer MEDICAID, SELFPAY | PROVIDERS: PCP Family Medicine; Visit Provider Nurse Practitioner | DX: J02.9 Acute pharyngitis, unspecified (principal) | CPT/HCPCS: 87880 ==

== ENCOUNTER → 2024-07-14 14:06 | Outpatient (BNVA) | payer MEDICAID, SELFPAY | PROVIDERS: PCP Family Medicine | DX: R05.9 Cough, unspecified (principal) | CPT/HCPCS: 71046 ==

== ENCOUNTER → 2024-10-26 10:07 | Outpatient (BNVA) | payer MEDICAID, SELFPAY | PROVIDERS: PCP Family Medicine | DX: B34.9 Viral infection, unspecified (principal) | CPT/HCPCS: 87400; 87426 ==

== ENCOUNTER 2025-01-10 10:53 | Emergency (ER) | payer MEDICAID, SELFPAY ==
[2025-01-10 11:17] VITALS: BP 117/68; PULSE 86; RESP 16; TEMP 36.8; O2SAT 95
[2025-01-10 11:43] LABS: Basophils % 0.6 %; Eosinophils # 0.1 10^3/uL (0.0-0.8); Eosinophils % 2.1 %; Hematocrit 41.3 % (36-47); Lymphocytes # 1.6 10^3/uL (0.8-4.8); Lymphocytes % 26.1 %; Mean Corpuscular HGB Conc 32.4 g/dL (30-55); Mean Corpuscular Hemoglobin 28.5 pg (27-33); Mean Corpuscular Volume 87.9 fl (85-98); Mean Platelet Volume 11.8 fL (7.4-10.4); Monocytes # 0.4 10^3/uL (0.2-0.9); Monocytes % 6.8 %; Neutrophils # 3.94 10^3/uL (1.8-7.7); Neutrophils % 64.1 %; Nucleated Red Blood Cells % 0 %; Platelet Count 161 10^3/cmm (157-399); Red Cell Distribution Width 12.5 % (12.1-15.1); White Blood Count 6.16 10^3/uL (3.29-11.43)
[2025-01-10 12:07] LABS: HCG, Serum Qual Negative (Negative)
[2025-01-10 12:09] LABS: Bilirubin Urine Negative (Negative); Blood Urine Negative (Negative); Glucose Urine UA Negative (Normal); Ketones Urine Negative (Negative); Leukocyte Esterase Urine Negative (Negative); Nitrate Urine Negative (Negative); Protein Urine Negative (Negative); Specific Gravity, Urine 1.004 (1.005-1.030); Urine Appearance Clear (CLEAR); Urine Color Yellow (Yellow); Urobilinogen Urine 0.2 mg/dL (Negative); pH Urine 7.5 (5-7)
[2025-01-10 12:11] LABS: Alanine Aminotransferase 12 U/L (0-33); Albumin Level 4.5 g/dL (3.5-5.2); Alkaline Phosphatase 60 U/L (35-105); Aspartate Amino Transferase 17 U/L (0-32); Blood Urea Nitrogen 9 mg/dL (6-20); Calcium 9.2 mg/dL (8.5-10.5); Carbon Dioxide 24 mmol/L (22-29); Chloride 103 mmol/L (98-107); Globulin 3.2 g/dL (1.3-4.6); Glomerular Filtration Rate 82.1 mL/min (90-130); Glucose 100 mg/dL (65-115); Lipase 32 U/L (13-60); Osmolality Calculated 287 mOsm/kg (285-295); Sodium 139 mmol/L (136-145); Total Bilirubin 0.4 mg/dL (0.15-1.2); Total Protein 7.7 g/dL (6.6-8.7)
[2025-01-10 12:15] LABS: Add Urine Microscopic? YES; Bacteria Urine None Seen /hpf; Hyaline Casts Urine 0-4 /lpf; RBC Urine 0-2 /hpf (0-2); Squamous Epithelial Cell Urine 0-5 /hpf (0-5); WBC Urine 0-5 /hpf (0-5)
[2025-01-10 12:17] LABS: Add Urine Culture? No
== END 2025-01-10 14:00 | disposition left against medical advice (07) ==
PROVIDERS: Emergency Medicine; Emergency Provider Family Medicine; PCP Family Medicine
DX: Z01.89 Encounter for other specified special examinations (principal); Z53.21 Procedure and treatment not carried out due to patient leaving prior to being seen by health care provider
CPT/HCPCS: 36415; 80053; 81001; 83690; 84703; 85025

== ENCOUNTER → 2025-05-08 15:22 | Outpatient (BNVA) | payer MEDICAID, SELFPAY | PROVIDERS: Visit Provider Nurse Practitioner | DX: J02.8 Acute pharyngitis due to other specified organisms (principal); B97.89 Other viral agents as the cause of diseases classified elsewhere | CPT/HCPCS: 87071; 87880 ==